=== PATIENT | female | born 1950 | race African-American/Black ===

== ENCOUNTER 2021-06-11 23:24 | Inpatient (IN) | payer MEDICARE ==
[2021-06-12] MEDS ORDERED: Dexamethasone 10 MG/ML VIAL ONE ×2 (02:42→11:50)
[2021-06-12] MEDS ORDERED: Dextrose 5% in Water 1,000 ML IV PRN (08:50)
[2021-06-12] MEDS ORDERED: hydrALAZINE 20 MG/ML VIAL SLOW IVP PRN (08:50)
[2021-06-12] MEDS ORDERED: Temazepam 15 MG CAP PO PRN (08:50)
[2021-06-12] MEDS ORDERED: Ondansetron ODT 4 MG TAB PO PRN (08:50)
[2021-06-12] MEDS ORDERED: Enoxaparin Sodium 30 MG/0.3 ML SYRINGE ONE (11:50)
[2021-06-12] MEDS: Dexamethasone 4 mg/ml Vial SLOW IVP SCH (11:55)
[2021-06-12] MEDS: Enoxaparin Sodium 30 MG/0.3 ML SYRINGE SC SCH (12:00)
[2021-06-12] MEDS ORDERED: HumaLOG 300 UNITS/3 ML VIAL ONE (12:02)
[2021-06-12] MEDS: Ascorbic Acid 500 mg Chewable Tablet PO SCH (13:50)
[2021-06-12] MEDS: Zinc Sulfate 220 MG CAP PO SCH (13:50)
[2021-06-12] MEDS: HumaLOG 300 UNITS/3 ML VIAL SC PRN ×2 (17:59→20:37)
[2021-06-13] MEDS: HumaLOG 300 UNITS/3 ML VIAL SC PRN ×3 (05:19→17:08)
[2021-06-13 06:22] LABS: Hemoglobin 11.1 g/dL (12.0-16.0); Mean Corpuscular HGB CONC 32.3 g/dL (32.0-36.0); Mean Corpuscular Hemoglobin 23.6 pg (27.0-31.0); Mean Corpuscular Volume 73.1 fL (78.0-98.0); Mean Platelet Volume 10.7 fL (7.4-10.4); Platelet Count 201 thou/uL (130-400); RBC Distribution Width 13.8 % (11.5-14.5); Red Blood Cell (RBC) Count 4.68 mill/uL (4.20-5.40); White Blood Cell (WBC) Count 16.9 thou/uL (4.8-10.8)
[2021-06-13 06:23] LABS: #Basophils 0.1 thou/uL (0.0-0.2); #Lymphocytes 1.3 thou/uL (1.20-3.40); #Monocytes 1.1 thou/uL (0.11-0.59); #Neutrophils 14.5 thou/uL (1.40-6.50); %Basophils 0.8 % (0.0-1.0); %Eosinophils 0.1 % (0.0-10.0); %Lymphocytes 7.5 % (21.0-51.0); %Monocytes 6.3 % (0.0-10.0); %Neutrophils 85.3 % (42.0-75.0)
[2021-06-13 06:34] LABS: Anion Gap 15 mmol/L (10-20); BUN (Urea Nitrogen) 49 mg/dL (9.8-20.1); Calc. Creatinine Clearance 31 mL/min (70-130); Carbon Dioxide 18 mmol/L (23-31); Chloride 109 mmol/L (98-107); Glucose 378 mg/dL (83-110); Potassium 4.8 mmol/L (3.5-5.1); Sodium 137 mmol/L (136-145)
[2021-06-13 07:25] LABS: MDiff Complete? YES; Platelet Morphology Comment Appears Adequate; Polychromasia SLIGHT = 2-3 cells (100X) (0-2/hpf)
[2021-06-13] MEDS: Ascorbic Acid 500 mg Chewable Tablet PO SCH (08:47)
[2021-06-13] MEDS: Zinc Sulfate 220 MG CAP PO SCH (08:47)
[2021-06-13] MEDS: Enoxaparin Sodium 30 MG/0.3 ML SYRINGE SC SCH (08:48)
[2021-06-13] MEDS: Dexamethasone 4 mg/ml Vial SLOW IVP SCH (08:48)
[2021-06-13] MEDS: Acetaminophen 325 MG TAB PO PRN (09:38)
[2021-06-13] MEDS ORDERED: Aspirin 81 mg Enteric Coated Tablet PO SCH (10:00)
[2021-06-13] MEDS ORDERED: Lantus 1000 UNITS/10 ML VIAL SC SCH ×3 (10:00→21:00)
[2021-06-13] MEDS ORDERED: NIFEdipine XL 30 MG TAB PO SCH (10:00)
[2021-06-13] MEDS ORDERED: Albuterol 200 PUFF (6.7GM INHALER) INH PRN (10:14)
[2021-06-13 10:17] LABS: Magnesium 2.3 mg/dL (1.6-2.6); Phosphorus 4.2 mg/dL (2.3-4.7)
[2021-06-13] MEDS: Albuterol 200 PUFF (6.7GM INHALER) INH SCH ×4 (11:52→22:10)
[2021-06-13] MEDS: Sodium Chloride 0.65% Nasal 44 ML BOT EA NARE SCH ×2 (15:18→20:11)
[2021-06-13] MEDS: NIFEdipine XL 30 MG TAB PO SCH (20:12)
[2021-06-14] MEDS ORDERED: Lorazepam 2 MG/ML VIAL SLOW IVP PRN (00:59)
[2021-06-14] MEDS: Albuterol 200 PUFF (6.7GM INHALER) INH SCH ×6 (02:03→22:34)
[2021-06-14] MEDS: HumaLOG 300 UNITS/3 ML VIAL SC PRN ×4 (06:36→21:50)
[2021-06-14 06:38] LABS: ALT (SGPT) 37 U/L (8-55); AST (SGOT) 43 U/L (5-34); Albumin 3.1 g/dL (3.4-4.8); Alkaline Phosphatase 215 U/L (40-110); Anion Gap 16 mmol/L (10-20); BUN (Urea Nitrogen) 44 mg/dL (9.8-20.1); Bilirubin, Total 0.5 mg/dL (0.2-1.2); CRP (Inflammatory) 6.83 mg/dL (= or < 0.5); Calc. Creatinine Clearance 35 mL/min (70-130); Calcium 8.6 mg/dL (7.8-10.44); Carbon Dioxide 18 mmol/L (23-31); Chloride 107 mmol/L (98-107); Globulin 3.6 g/dL (2.4-3.5); Glucose 326 mg/dL (83-110); Potassium 4.4 mmol/L (3.5-5.1); Protein, Total 6.7 g/dL (5.8-8.1); Sodium 137 mmol/L (136-145)
[2021-06-14 06:46] LABS: Band 6 % (5-11); Hemoglobin 11.8 g/dL (12.0-16.0); Lymphocytes 2 % (21-51); MDiff Complete? YES; Mean Corpuscular HGB CONC 33.4 g/dL (32.0-36.0); Mean Corpuscular Hemoglobin 24.1 pg (27.0-31.0); Mean Corpuscular Volume 72.1 fL (78.0-98.0); Mean Platelet Volume 11.4 fL (7.4-10.4); Monocytes 6 % (0-10); Myelocyte 1 % (0-0); Neutrophil 83 % (42-75); Nucleated RBC 1 % (0); Platelet Count 163 thou/uL (130-400); Platelet Morphology Comment Appears Adequate; RBC Distribution Width 13.7 % (11.5-14.5); RBC Morphology Normal; Reactive Lymphocytes 2 % (0-10); Red Blood Cell (RBC) Count 4.88 mill/uL (4.20-5.40); White Blood Cell (WBC) Count 20.4 thou/uL (4.8-10.8)
[2021-06-14] MEDS: Aspirin 81 mg Enteric Coated Tablet PO SCH (08:16)
[2021-06-14] MEDS: Zinc Sulfate 220 MG CAP PO SCH (08:16)
[2021-06-14] MEDS: NIFEdipine XL 30 MG TAB PO SCH (08:17)
[2021-06-14] MEDS: Ascorbic Acid 500 mg Chewable Tablet PO SCH (08:17)
[2021-06-14] MEDS: Enoxaparin Sodium 30 MG/0.3 ML SYRINGE SC SCH (08:18)
[2021-06-14] MEDS: Sodium Chloride 0.65% Nasal 44 ML BOT EA NARE SCH ×3 (08:19→20:04)
[2021-06-14] MEDS ORDERED: Dexamethasone 10 MG/ML VIAL SLOW IVP SCH (09:00)
[2021-06-14] MEDS ORDERED: Lantus 1000 UNITS/10 ML VIAL SC SCH (09:00)
[2021-06-14] MEDS ORDERED: Rocuronium Bromide 10 MG/ML (10ML VIAL) ONE (09:03)
[2021-06-14] MEDS ORDERED: Succinylcholine 200 MG/10 ml SYRINGE FS ONE (09:03)
[2021-06-14] MEDS ORDERED: Furosemide 20 MG/2 ML VIAL SLOW IVP SCH (09:15)
[2021-06-14] MEDS ORDERED: cloNIDine 0.1 MG TAB PO PRN (09:26)
[2021-06-14] MEDS ORDERED: Losartan 25 MG TAB PO SCH (09:30)
[2021-06-14] MEDS ORDERED: Lorazepam 0.5 MG TAB PO SCH (11:00)
[2021-06-14] MEDS ORDERED: Vecuronium 10 MG VIAL ONE (14:00)
[2021-06-14] MEDS ORDERED: Succinylcholine 200 MG/10 ml SYRINGE FS SCH (14:00)
[2021-06-14] MEDS ORDERED: PROPOFOL 200 MG/20 ML VIAL IVP SCH (14:00)
[2021-06-14] MEDS ORDERED: Sterile Water 10 ML ONE (14:01)
[2021-06-14] MEDS ORDERED: Propofol 1,000 MG/100 ML VIAL IV ONE (14:01)
[2021-06-14] MEDS ORDERED: Fentanyl CADD 100 ML ONE (14:14)
[2021-06-14] MEDS: Rocuronium Bromide 50 MG/5 ML VIAL IVP SCH ×2 (14:15→16:02)
[2021-06-14] MEDS: Propofol 1,000 MG/100 ML VIAL IV PRN ×2 (14:20→20:03)
[2021-06-14 15:11] LABS: Actual Bicarbonate (HCO3a) 21.4 mEq/L (22-28); Base Excess (BEa) -4.1 mEq/L (-2.0 to +3.0); CO2 Tension 40.8 mmHg (35.0-45.0); Calcium, Ionized (arterial) 1.11 mmol/L (1.12-1.30); Carboxyhemoglobin (COHb) 0.8 gm% (0.0-3.0); Hemoglobin (Hb) 12.2 g/dL (12.0-16.0); O2 Tension (PaO2), arterial 164.1 mmHg (> 70.0); Potassium - ABG Lab 4.31 mmol/L (3.70-5.30); pH, Arterial 7.34 (7.35-7.45)
[2021-06-14 15:13] LABS: Puncture Site RRA
[2021-06-14] MEDS ORDERED: Electrolyte Replacement Protocol 1 EACH IVPB ONE (15:44)
[2021-06-14] MEDS ORDERED: DISCONTINUE PREVIOUS NARCOTIC PAIN MEDICATIONS AND BENZODIAZEPINES FS SCH (15:45)
[2021-06-14] MEDS ORDERED: Propofol BOLUS 1,000 MG/100 ML VIAL IV PRN (15:45)
[2021-06-14] MEDS ORDERED: Fentanyl BOLUS 250 ML IVPB PRN (15:45)
[2021-06-14] MEDS ORDERED: Morphine 2 MG/ML VIAL SLOW IVP PRN (15:45)
[2021-06-14] MEDS ORDERED: Electrolyte Replacement Protocol FS PRN (19:00)
[2021-06-14] MEDS: Mometasone 200 MCG/Formoterol 5 MCG 120 PUFF INHALER INH SCH (19:28)
[2021-06-14] MEDS: Lantus 1000 UNITS/10 ML VIAL SC SCH (20:02)
[2021-06-14] MEDS: Lorazepam 2 MG/ML VIAL SLOW IVP PRN (20:03)
[2021-06-14 20:41] LABS: Anion Gap 19 mmol/L (10-20); BUN (Urea Nitrogen) 46 mg/dL (9.8-20.1); CRP (Inflammatory) 10.61 mg/dL (= or < 0.5); Calc. Creatinine Clearance 28 mL/min (70-130); Calcium 7.8 mg/dL (7.8-10.44); Carbon Dioxide 17 mmol/L (23-31); Chloride 105 mmol/L (98-107); Glucose 472 mg/dL (83-110); Potassium 5.5 mmol/L (3.5-5.1); Sodium 135 mmol/L (136-145)
[2021-06-14] MEDS ORDERED: Vecuronium Bromide 20 MG VIAL IV PRN (20:46)
[2021-06-14] MEDS ORDERED: Famotidine 40 MG/5 ML Oral Suspension PER TUBE SCH (21:00)
[2021-06-14] MEDS ORDERED: Famotidine/PF 20 mg/2ml Vial SLOW IVP SCH (21:00)
[2021-06-14] MEDS ORDERED: Amlodipine 5 MG TAB PO SCH (21:00)
[2021-06-14] MEDS: Pantoprazole 40 MG VIAL IVP SCH (21:14)
[2021-06-14] MEDS: Enoxaparin Sodium 40 MG/0.4 ML SYRINGE SC SCH (21:14)
[2021-06-14] MEDS ORDERED: BARICITINIB 1 MG TAB PO SCH (21:15)
[2021-06-14] MEDS: Colchicine 0.6 MG TAB PO SCH (21:27)
[2021-06-14] MEDS: Sodium Bicarbonate 100 MEQ in Sodium Chloride 0.45% 1,000 ML IV SCH (22:45)
[2021-06-14] MEDS: METHYLPREDNISOLONE SODIUM SUCC IVPB SCH (22:46)
[2021-06-14] MEDS: SODIUM CHLORIDE 0.9% IVPB SCH (22:46)
[2021-06-15] MEDS: Propofol 1,000 MG/100 ML VIAL IV PRN ×2 (01:09→10:53)
[2021-06-15] MEDS: HumaLOG 300 UNITS/3 ML VIAL SC PRN ×5 (02:06→22:09)
[2021-06-15] MEDS: Albuterol 200 PUFF (6.7GM INHALER) INH SCH ×6 (03:04→22:12)
[2021-06-15 04:49] LABS: Band 1 % (5-11); Hemoglobin 10.1 g/dL (12.0-16.0); Lymphocytes 8 % (21-51); MDiff Complete? YES; Mean Corpuscular HGB CONC 32.5 g/dL (32.0-36.0); Mean Corpuscular Hemoglobin 23.6 pg (27.0-31.0); Mean Corpuscular Volume 72.5 fL (78.0-98.0); Mean Platelet Volume 6.8 fL (7.4-10.4); Metamyelocyte 1 % (0-0); Monocytes 6 % (0-10); Myelocyte 1 % (0-0); Neutrophil 83 % (42-75); Nucleated RBC 1 % (0); Platelet Count 77 thou/uL (130-400); Platelet Morphology Comment Appears Decreased; White Blood Cell (WBC) Count 20.9 thou/uL (4.8-10.8)
[2021-06-15 04:52] LABS: ALT (SGPT) 27 U/L (8-55); AST (SGOT) 28 U/L (5-34); Albumin 2.6 g/dL (3.4-4.8); Alkaline Phosphatase 226 U/L (40-110); Anion Gap 15 mmol/L (10-20); BUN (Urea Nitrogen) 54 mg/dL (9.8-20.1); Bilirubin, Total 0.4 mg/dL (0.2-1.2); Calc. Creatinine Clearance 22 mL/min (70-130); Calcium 7.9 mg/dL (7.8-10.44); Carbon Dioxide 21 mmol/L (23-31); Chloride 106 mmol/L (98-107); Globulin 3.1 g/dL (2.4-3.5); Glucose 294 mg/dL (83-110); Potassium 4.6 mmol/L (3.5-5.1); Protein, Total 5.7 g/dL (5.8-8.1); Sodium 137 mmol/L (136-145)
[2021-06-15 04:52] LABS: CRP (Inflammatory) 12.14 mg/dL (= or < 0.5); Magnesium 2.4 mg/dL (1.6-2.6)
[2021-06-15 04:54] LABS: CK (CPK) 498 U/L (29-168); Phosphorus 5.5 mg/dL (2.3-4.7)
[2021-06-15] MEDS: Mometasone 200 MCG/Formoterol 5 MCG 120 PUFF INHALER INH SCH ×2 (07:18→18:50)
[2021-06-15 07:40] LABS: Actual Bicarbonate (HCO3a) 20.1 mEq/L (22-28); Base Excess (BEa) -4.6 mEq/L (-2.0 to +3.0); CO2 Tension 35.8 mmHg (35.0-45.0); Carboxyhemoglobin (COHb) 1.3 gm% (0.0-3.0); Hemoglobin (Hb) 13.2 g/dL (12.0-16.0); O2 Tension (PaO2), arterial 60.7 mmHg (> 70.0); Potassium - ABG Lab 4.43 mmol/L (3.70-5.30); Puncture Site RRA; pH, Arterial 7.37 (7.35-7.45)
[2021-06-15] MEDS ORDERED: Enoxaparin Sodium 40 MG/0.4 ML SYRINGE SC SCH (09:00)
[2021-06-15] MEDS ORDERED: NIFEdipine XL 60 MG TAB PO SCH (09:00)
[2021-06-15] MEDS ORDERED: Losartan 25 MG TAB PO SCH ×2 (09:00)
[2021-06-15] MEDS: Ascorbic Acid 500 mg Chewable Tablet PO SCH (09:26)
[2021-06-15] MEDS: Colchicine 0.6 MG TAB PO SCH ×2 (09:26→22:07)
[2021-06-15] MEDS: Aspirin 81 mg Enteric Coated Tablet PO SCH (09:26)
[2021-06-15] MEDS: Zinc Sulfate 220 MG CAP PO SCH (09:26)
[2021-06-15] MEDS: Lantus 1000 UNITS/10 ML VIAL SC SCH ×2 (09:28→22:08)
[2021-06-15] MEDS: Enoxaparin Sodium 40 MG/0.4 ML SYRINGE SC SCH ×2 (09:29→22:05)
[2021-06-15] MEDS: Pantoprazole 40 MG VIAL IVP SCH ×2 (09:30→22:04)
[2021-06-15] MEDS: Sodium Chloride 0.65% Nasal 44 ML BOT EA NARE SCH ×3 (10:09→21:00)
[2021-06-15] MEDS: BARICITINIB 1 MG TAB PO SCH (10:26)
[2021-06-15] MEDS: Sodium Bicarbonate 100 MEQ in Sodium Chloride 0.45% 1,000 ML IV SCH (14:20)
[2021-06-15] MEDS ORDERED: Dextrose 50% Abboject 50 ML SYRINGE ONE (22:17)
[2021-06-15] MEDS: METHYLPREDNISOLONE SODIUM SUCC IVPB SCH (22:41)
[2021-06-15] MEDS: SODIUM CHLORIDE 0.9% IVPB SCH (22:41)
[2021-06-16] MEDS: HumaLOG 300 UNITS/3 ML VIAL SC PRN ×6 (01:41→20:35)
[2021-06-16] MEDS: Albuterol 200 PUFF (6.7GM INHALER) INH SCH ×6 (01:47→22:20)
[2021-06-16] MEDS: Propofol 1,000 MG/100 ML VIAL IV PRN ×5 (03:47→22:58)
[2021-06-16] MEDS ORDERED: Fentanyl CADD 100 ML ONE (04:44)
[2021-06-16] MEDS: Sodium Bicarbonate 100 MEQ in Sodium Chloride 0.45% 1,000 ML IV SCH (04:51)
[2021-06-16] MEDS: Mometasone 200 MCG/Formoterol 5 MCG 120 PUFF INHALER INH SCH ×2 (07:14→19:03)
[2021-06-16 07:37] LABS: Actual Bicarbonate (HCO3a) 21.2 mEq/L (22-28); Base Excess (BEa) -1.7 mEq/L (-2.0 to +3.0); CO2 Tension 29.2 mmHg (35.0-45.0); Calcium, Ionized (arterial) 0.99 mmol/L (1.12-1.30); Carboxyhemoglobin (COHb) 0.2 gm% (0.0-3.0); Hemoglobin (Hb) 9.7 g/dL (12.0-16.0); O2 Tension (PaO2), arterial 79.4 mmHg (> 70.0); Potassium - ABG Lab 3.84 mmol/L (3.70-5.30); pH, Arterial 7.48 (7.35-7.45)
[2021-06-16 07:38] LABS: Puncture Site LRA
[2021-06-16] MEDS: Lantus 1000 UNITS/10 ML VIAL SC SCH ×2 (10:07→20:33)
[2021-06-16] MEDS: BARICITINIB 1 MG TAB PO SCH (10:10)
[2021-06-16] MEDS: Aspirin 81 mg Enteric Coated Tablet PO SCH (10:10)
[2021-06-16] MEDS: Ascorbic Acid 500 mg Chewable Tablet PO SCH (10:10)
[2021-06-16] MEDS: Colchicine 0.6 MG TAB PO SCH (10:11)
[2021-06-16] MEDS: Enoxaparin Sodium 40 MG/0.4 ML SYRINGE SC SCH ×2 (10:11→20:32)
[2021-06-16] MEDS: Zinc Sulfate 220 MG CAP PO SCH (10:11)
[2021-06-16] MEDS: Pantoprazole 40 MG VIAL IVP SCH ×2 (10:11→20:34)
[2021-06-16 10:18] LABS: Anion Gap 20 mmol/L (10-20); BUN (Urea Nitrogen) 78 mg/dL (9.8-20.1); Band 26 % (5-11); Calc. Creatinine Clearance 13 mL/min (70-130); Calcium 7.2 mg/dL (7.8-10.44); Carbon Dioxide 20 mmol/L (23-31); Chloride 101 mmol/L (98-107); Glucose 219 mg/dL (83-110); Lymphocytes 7 % (21-51); MDiff Complete? YES; Magnesium 2.3 mg/dL (1.6-2.6); Mean Corpuscular HGB CONC 32.4 g/dL (32.0-36.0); Mean Corpuscular Hemoglobin 23.1 pg (27.0-31.0); Mean Corpuscular Volume 71.2 fL (78.0-98.0); Mean Platelet Volume 7.9 fL (7.4-10.4); Monocytes 1 % (0-10); Myelocyte 6 % (0-0); Neutrophil 60 % (42-75); Platelet Count 83 thou/uL (130-400); Potassium 3.9 mmol/L (3.5-5.1); RBC Distribution Width 13.5 % (11.5-14.5); Red Blood Cell (RBC) Count 3.89 mill/uL (4.20-5.40); Sodium 137 mmol/L (136-145); White Blood Cell (WBC) Count 23.3 thou/uL (4.8-10.8)
[2021-06-16] MEDS: Sodium Chloride 0.65% Nasal 44 ML BOT EA NARE SCH ×2 (11:08→14:21)
[2021-06-16 16:39] LABS: HBSAg Index 0.17 S/CO (0-0.99); Hep B Core Total Ab Non-Reactive (NonReactive); Hep B Core Total Index 0.06 S/CO (0-0.79); Hep B Surf Ag Non-Reactive S/CO (NonReactive); Hep C IgG Ab Non-Reactive (NonReactive); Hep C Index 0.05 S/CO (0-0.79)
[2021-06-16 18:00] LABS: HBSAB Concentration 11.33 mIU/mL
[2021-06-16 18:01] LABS: Hep B Surf AB EQUIVOCAL (NonReactive)
[2021-06-16] MEDS: METHYLPREDNISOLONE SODIUM SUCC IVPB SCH (23:58)
[2021-06-16] MEDS: SODIUM CHLORIDE 0.9% IVPB SCH (23:58)
[2021-06-17] MEDS: HumaLOG 300 UNITS/3 ML VIAL SC PRN ×6 (00:09→23:50)
[2021-06-17] MEDS: Albuterol 200 PUFF (6.7GM INHALER) INH SCH ×6 (02:15→22:20)
[2021-06-17 04:45] LABS: Band 8 % (5-11); Eosinophils 2 % (0-10); Hemoglobin 9.1 g/dL (12.0-16.0); Hypochromia SLIGHT = 6-15 cells (100X) (0-5/hpf); Lymphocytes 6 % (21-51); MDiff Complete? YES; Mean Corpuscular HGB CONC 32.9 g/dL (32.0-36.0); Mean Corpuscular Hemoglobin 23.3 pg (27.0-31.0); Mean Corpuscular Volume 70.8 fL (78.0-98.0); Mean Platelet Volume 8.1 fL (7.4-10.4); Microcytosis SLIGHT = 6-15 cells (100X) (0-5/hpf); Monocytes 18 % (0-10); Neutrophil 66 % (42-75); Platelet Count 91 thou/uL (130-400); Platelet Morphology Comment Appears Decreased; RBC Distribution Width 13.4 % (11.5-14.5); Red Blood Cell (RBC) Count 3.91 mill/uL (4.20-5.40); White Blood Cell (WBC) Count 25.7 thou/uL (4.8-10.8)
[2021-06-17] MEDS: Mometasone 200 MCG/Formoterol 5 MCG 120 PUFF INHALER INH SCH ×2 (07:00→18:53)
[2021-06-17 07:29] LABS: Base Excess (BEa) -4.1 mEq/L (-2.0 to +3.0); Calcium, Ionized (arterial) 0.94 mmol/L (1.12-1.30); Carboxyhemoglobin (COHb) 0.6 gm% (0.0-3.0); Hemoglobin (Hb) 9.4 g/dL (12.0-16.0); O2 Tension (PaO2), arterial 105.3 mmHg (> 70.0); Potassium - ABG Lab 4.07 mmol/L (3.70-5.30)
[2021-06-17 07:31] LABS: CO2 Tension 23.8 mmHg (35.0-45.0); Puncture Site LRA
[2021-06-17 09:52] LABS: Anion Gap 21 mmol/L (10-20); BUN (Urea Nitrogen) 93 mg/dL (9.8-20.1); Calc. Creatinine Clearance 4 mL/min (70-130); Calcium 7.1 mg/dL (7.8-10.44); Carbon Dioxide 18 mmol/L (23-31); Chloride 101 mmol/L (98-107); Glucose 238 mg/dL (83-110); Potassium 4.4 mmol/L (3.5-5.1); Sodium 136 mmol/L (136-145)
[2021-06-17] MEDS: Propofol 1,000 MG/100 ML VIAL IV PRN ×3 (10:09→22:32)
[2021-06-17] MEDS: Pantoprazole 40 MG VIAL IVP SCH ×2 (10:35→21:00)
[2021-06-17] MEDS: Zinc Sulfate 220 MG CAP PO SCH (10:35)
[2021-06-17] MEDS: Enoxaparin Sodium 40 MG/0.4 ML SYRINGE SC SCH ×2 (10:35→20:59)
[2021-06-17] MEDS: Ascorbic Acid 500 mg Chewable Tablet PO SCH (10:35)
[2021-06-17] MEDS: Aspirin 81 mg Enteric Coated Tablet PO SCH (10:35)
[2021-06-17] MEDS: Lantus 1000 UNITS/10 ML VIAL SC SCH ×2 (10:36→20:58)
[2021-06-17] MEDS ORDERED: Vecuronium 10 MG VIAL ONE (10:47)
[2021-06-17] MEDS: Sodium Chloride 0.65% Nasal 44 ML BOT EA NARE SCH ×4 (12:21→23:26)
[2021-06-18] MEDS: SODIUM CHLORIDE 0.9% IVPB SCH (01:34)
[2021-06-18] MEDS: METHYLPREDNISOLONE SODIUM SUCC IVPB SCH (01:34)
[2021-06-18] MEDS: Albuterol 200 PUFF (6.7GM INHALER) INH SCH ×6 (01:49→22:55)
[2021-06-18] MEDS: Propofol 1,000 MG/100 ML VIAL IV PRN ×2 (04:31→08:08)
[2021-06-18 05:33] LABS: Band 11 % (5-11); Hemoglobin 9.3 g/dL (12.0-16.0); Lymphocytes 7 % (21-51); MDiff Complete? YES; Mean Corpuscular Hemoglobin 23.5 pg (27.0-31.0); Mean Platelet Volume 7.6 fL (7.4-10.4); Metamyelocyte 3 % (0-0); Microcytosis SLIGHT = 6-15 cells (100X) (0-5/hpf); Monocytes 3 % (0-10); Myelocyte 1 % (0-0); Neutrophil 75 % (42-75); Nucleated RBC 1 % (0); Platelet Count 92 thou/uL (130-400); Platelet Morphology Comment Appears Decreased; RBC Distribution Width 13.5 % (11.5-14.5); Red Blood Cell (RBC) Count 3.97 mill/uL (4.20-5.40); Schistocytes SLIGHT = 2-5 cells (100X) (0-1/hpf); White Blood Cell (WBC) Count 27.3 thou/uL (4.8-10.8)
[2021-06-18 05:59] LABS: Anion Gap 21 mmol/L (10-20); BUN (Urea Nitrogen) 114 mg/dL (9.8-20.1); CRP (Inflammatory) 3.14 mg/dL (= or < 0.5); Calc. Creatinine Clearance 8 mL/min (70-130); Calcium 7.1 mg/dL (7.8-10.44); Carbon Dioxide 20 mmol/L (23-31); Chloride 101 mmol/L (98-107); Glucose 70 mg/dL (83-110); Potassium 4.8 mmol/L (3.5-5.1); Sodium 137 mmol/L (136-145)
[2021-06-18] MEDS ORDERED: Fentanyl CADD 100 ML ONE (06:06)
[2021-06-18] MEDS: Fentanyl CADD 100 ML IV SCH (06:13)
[2021-06-18] MEDS: Mometasone 200 MCG/Formoterol 5 MCG 120 PUFF INHALER INH SCH ×2 (07:20→19:11)
[2021-06-18 07:46] LABS: Actual Bicarbonate (HCO3a) 18.3 mEq/L (22-28); Base Excess (BEa) -4.7 mEq/L (-2.0 to +3.0); Calcium, Ionized (arterial) 0.92 mmol/L (1.12-1.30); Carboxyhemoglobin (COHb) 0.5 gm% (0.0-3.0); Hemoglobin (Hb) 9.6 g/dL (12.0-16.0); O2 Tension (PaO2), arterial 147.6 mmHg (> 70.0); pH, Arterial 7.45 (7.35-7.45)
[2021-06-18 07:49] LABS: Puncture Site LRA
[2021-06-18] MEDS: Enoxaparin Sodium 40 MG/0.4 ML SYRINGE SC SCH (09:19)
[2021-06-18] MEDS: Aspirin Chewable 81 MG TAB PO SCH (09:20)
[2021-06-18] MEDS: Ascorbic Acid 500 mg Chewable Tablet PO SCH (09:20)
[2021-06-18] MEDS: Zinc Sulfate 220 MG CAP PO SCH (09:20)
[2021-06-18] MEDS: Pantoprazole 40 MG VIAL IVP SCH ×2 (09:21→21:00)
[2021-06-18] MEDS: Lantus 1000 UNITS/10 ML VIAL SC SCH ×2 (09:21→21:00)
[2021-06-18] MEDS: Sodium Chloride 0.65% Nasal 44 ML BOT EA NARE SCH ×3 (09:22→21:00)
[2021-06-18] MEDS ORDERED: Vecuronium 10 MG VIAL ONE (11:36)
[2021-06-18] MEDS ORDERED: Heparin 10,000 UNITS/ 10 ML VIAL ONE (14:20)
[2021-06-19] MEDS: METHYLPREDNISOLONE SODIUM SUCC IVPB SCH (02:12)
[2021-06-19] MEDS: SODIUM CHLORIDE 0.9% IVPB SCH (02:12)
[2021-06-19] MEDS: Albuterol 200 PUFF (6.7GM INHALER) INH SCH ×6 (02:28→22:30)
[2021-06-19 04:39] LABS: Anion Gap 18 mmol/L (10-20); BUN (Urea Nitrogen) 87 mg/dL (9.8-20.1); Calc. Creatinine Clearance 10 mL/min (70-130); Calcium 7.2 mg/dL (7.8-10.44); Carbon Dioxide 24 mmol/L (23-31); Chloride 100 mmol/L (98-107); Glucose 81 mg/dL (83-110); Sodium 137 mmol/L (136-145)
[2021-06-19] MEDS: Enoxaparin Sodium 40 MG/0.4 ML SYRINGE SC SCH (07:04)
[2021-06-19] MEDS: Zinc Sulfate 220 MG CAP PO SCH (07:05)
[2021-06-19] MEDS: Ascorbic Acid 500 mg Chewable Tablet PO SCH (07:05)
[2021-06-19] MEDS: Aspirin Chewable 81 MG TAB PO SCH (07:05)
[2021-06-19] MEDS: Pantoprazole 40 MG GRANULES PACKET PER TUBE SCH ×2 (07:05→20:56)
[2021-06-19] MEDS: Lantus 1000 UNITS/10 ML VIAL SC SCH ×2 (07:22→20:56)
[2021-06-19] MEDS: Sodium Chloride 0.65% Nasal 44 ML BOT EA NARE SCH ×3 (07:22→21:42)
[2021-06-19] MEDS: Mometasone 200 MCG/Formoterol 5 MCG 120 PUFF INHALER INH SCH ×2 (08:34→18:17)
[2021-06-19 08:38] LABS: Actual Bicarbonate (HCO3a) 22.2 mEq/L (22-28); Base Excess (BEa) -1.9 mEq/L (-2.0 to +3.0); CO2 Tension 35.2 mmHg (35.0-45.0); Calcium, Ionized (arterial) 0.94 mmol/L (1.12-1.30); Carboxyhemoglobin (COHb) 0.9 gm% (0.0-3.0); Hemoglobin (Hb) 9.2 g/dL (12.0-16.0); O2 Tension (PaO2), arterial 138.9 mmHg (> 70.0); Potassium - ABG Lab 4.84 mmol/L (3.70-5.30); pH, Arterial 7.42 (7.35-7.45)
[2021-06-19 08:40] LABS: Puncture Site RRA
[2021-06-19 10:12] LABS: Hemoglobin 9.3 g/dL (12.0-16.0); Mean Corpuscular HGB CONC 32.8 g/dL (32.0-36.0); Mean Corpuscular Hemoglobin 23.5 pg (27.0-31.0); Mean Corpuscular Volume 71.7 fL (78.0-98.0); Mean Platelet Volume 7.9 fL (7.4-10.4); Platelet Count 82 thou/uL (130-400); Red Blood Cell (RBC) Count 3.93 mill/uL (4.20-5.40); White Blood Cell (WBC) Count 24.1 thou/uL (4.8-10.8)
[2021-06-19 11:13] LABS: Band 7 % (5-11); Lymphocytes 7 % (21-51); MDiff Complete? YES; Metamyelocyte 2 % (0-0); Monocytes 1 % (0-10); Myelocyte 1 % (0-0); Neutrophil 81 % (42-75); Platelet Morphology Comment Appears Decreased; Polychromasia SLIGHT = 2-3 cells (100X) (0-2/hpf); Reactive Lymphocytes 1 % (0-10); Reflex for Review?? NO; Schistocytes SLIGHT = 2-5 cells (100X) (0-1/hpf); Vacuoles MODERATE
[2021-06-19] MEDS ORDERED: Fentanyl CADD 100 ML ONE (12:57)
[2021-06-19] MEDS: Propofol 1,000 MG/100 ML VIAL IV PRN (13:11)
[2021-06-19] MEDS ORDERED: Heparin 10,000 UNITS/ 10 ML VIAL ONE (13:52)
[2021-06-20] MEDS: Albuterol 200 PUFF (6.7GM INHALER) INH SCH ×6 (02:27→22:21)
[2021-06-20] MEDS: METHYLPREDNISOLONE SODIUM SUCC IVPB SCH (02:46)
[2021-06-20] MEDS: SODIUM CHLORIDE 0.9% IVPB SCH (02:46)
[2021-06-20 05:08] LABS: Anisocytosis SLIGHT = 6-15 cells (100X) (0-5/hpf); Band 3 % (5-11); Eosinophils 1 % (0-10); Lymphocytes 8 % (21-51); MDiff Complete? YES; Mean Corpuscular HGB CONC 32.7 g/dL (32.0-36.0); Mean Corpuscular Hemoglobin 23.8 pg (27.0-31.0); Mean Corpuscular Volume 72.9 fL (78.0-98.0); Mean Platelet Volume 8.5 fL (7.4-10.4); Metamyelocyte 3 % (0-0); Microcytosis SLIGHT = 6-15 cells (100X) (0-5/hpf); Monocytes 2 % (0-10); Myelocyte 3 % (0-0); Neutrophil 80 % (42-75); Nucleated RBC 1 % (0); Platelet Count 82 thou/uL (130-400); Platelet Morphology Comment Appears Decreased; Polychromasia SLIGHT = 2-3 cells (100X) (0-2/hpf); RBC Distribution Width 14.8 % (11.5-14.5); Red Blood Cell (RBC) Count 3.79 mill/uL (4.20-5.40); White Blood Cell (WBC) Count 23.1 thou/uL (4.8-10.8)
[2021-06-20] MEDS: Zinc Sulfate 220 MG CAP PO SCH (07:12)
[2021-06-20] MEDS: Enoxaparin Sodium 40 MG/0.4 ML SYRINGE SC SCH (07:12)
[2021-06-20] MEDS: Pantoprazole 40 MG GRANULES PACKET PER TUBE SCH ×2 (07:12→19:34)
[2021-06-20] MEDS: Aspirin Chewable 81 MG TAB PO SCH (07:13)
[2021-06-20] MEDS: Ascorbic Acid 500 mg Chewable Tablet PO SCH (07:13)
[2021-06-20] MEDS: Mometasone 200 MCG/Formoterol 5 MCG 120 PUFF INHALER INH SCH ×2 (07:39→18:45)
[2021-06-20 07:42] LABS: Actual Bicarbonate (HCO3a) 24.6 mEq/L (22-28); Base Excess (BEa) -0.5 mEq/L (-2.0 to +3.0); CO2 Tension 42.6 mmHg (35.0-45.0); Calcium, Ionized (arterial) 0.99 mmol/L (1.12-1.30); Carboxyhemoglobin (COHb) 0.6 gm% (0.0-3.0); O2 Tension (PaO2), arterial 105.7 mmHg (> 70.0); Potassium - ABG Lab 5.18 mmol/L (3.70-5.30); pH, Arterial 7.38 (7.35-7.45)
[2021-06-20 07:45] LABS: Puncture Site RRA
[2021-06-20] MEDS: Lantus 1000 UNITS/10 ML VIAL SC SCH ×2 (08:32→19:33)
[2021-06-20] MEDS: Sodium Chloride 0.65% Nasal 44 ML BOT EA NARE SCH ×3 (08:33→19:34)
[2021-06-20 10:13] LABS: Anion Gap 17 mmol/L (10-20); BUN (Urea Nitrogen) 74 mg/dL (9.8-20.1); Calc. Creatinine Clearance 11 mL/min (70-130); Calcium 7.3 mg/dL (7.8-10.44); Carbon Dioxide 25 mmol/L (23-31); Chloride 99 mmol/L (98-107); Glucose 132 mg/dL (83-110); Potassium 5.4 mmol/L (3.5-5.1); Sodium 136 mmol/L (136-145)
[2021-06-20] MEDS: Propofol 1,000 MG/100 ML VIAL IV PRN (12:17)
[2021-06-20] MEDS: Lorazepam 2 MG/ML VIAL SLOW IVP PRN ×2 (12:58→17:47)
[2021-06-20] MEDS ORDERED: Fentanyl CADD 100 ML ONE (15:26)
[2021-06-21] MEDS: HumaLOG 300 UNITS/3 ML VIAL SC PRN ×2 (00:32→04:46)
[2021-06-21] MEDS: METHYLPREDNISOLONE SODIUM SUCC IVPB SCH (02:12)
[2021-06-21] MEDS: SODIUM CHLORIDE 0.9% IVPB SCH (02:12)
[2021-06-21] MEDS: Albuterol 200 PUFF (6.7GM INHALER) INH SCH ×6 (02:57→23:17)
[2021-06-21 06:46] LABS: Band 11 % (5-11); Hemoglobin 8.5 g/dL (12.0-16.0); Lymphocytes 4 % (21-51); MDiff Complete? YES; Mean Corpuscular Hemoglobin 23.4 pg (27.0-31.0); Mean Corpuscular Volume 73.2 fL (78.0-98.0); Mean Platelet Volume 9.6 fL (7.4-10.4); Monocytes 2 % (0-10); Neutrophil 83 % (42-75); Platelet Count 90 thou/uL (130-400); Platelet Morphology Comment Appears Decreased; RBC Distribution Width 14.4 % (11.5-14.5); Red Blood Cell (RBC) Count 3.63 mill/uL (4.20-5.40); White Blood Cell (WBC) Count 22.1 thou/uL (4.8-10.8)
[2021-06-21] MEDS: Lorazepam 2 MG/ML VIAL SLOW IVP PRN (07:48)
[2021-06-21 08:16] LABS: Hemoglobin 8.9 g/dL (12.0-16.0); Mean Corpuscular HGB CONC 31.6 g/dL (32.0-36.0); Mean Corpuscular Hemoglobin 23.4 pg (27.0-31.0); Mean Corpuscular Volume 73.9 fL (78.0-98.0); Mean Platelet Volume 9.2 fL (7.4-10.4); Platelet Count 86 thou/uL (130-400); RBC Distribution Width 14.8 % (11.5-14.5); Red Blood Cell (RBC) Count 3.81 mill/uL (4.20-5.40); White Blood Cell (WBC) Count 25.3 thou/uL (4.8-10.8)
[2021-06-21] MEDS: Mometasone 200 MCG/Formoterol 5 MCG 120 PUFF INHALER INH SCH ×2 (08:25→19:19)
[2021-06-21 08:27] LABS: Anion Gap 26 mmol/L (10-20); BUN (Urea Nitrogen) 92 mg/dL (9.8-20.1); Calc. Creatinine Clearance 9 mL/min (70-130); Calcium 6.4 mg/dL (7.8-10.44); Carbon Dioxide 19 mmol/L (23-31); Chloride 107 mmol/L (98-107); Glucose 93 mg/dL (83-110); Potassium 6.7 mmol/L (3.5-5.1); Sodium 145 mmol/L (136-145)
[2021-06-21 08:55] LABS: Band 7 % (5-11); Hypochromia SLIGHT = 6-15 cells (100X) (0-5/hpf); Lymphocytes 3 % (21-51); MDiff Complete? YES; Microcytosis SLIGHT = 6-15 cells (100X) (0-5/hpf); Monocytes 6 % (0-10); Neutrophil 84 % (42-75); Platelet Morphology Comment Appears Decreased; Polychromasia SLIGHT = 2-3 cells (100X) (0-2/hpf); Schistocytes SLIGHT = 2-5 cells (100X) (0-1/hpf); Target Cells SLIGHT = 2-5 cells (100X) (0-1/hpf)
[2021-06-21] MEDS: Lantus 1000 UNITS/10 ML VIAL SC SCH ×2 (09:37→20:06)
[2021-06-21] MEDS: Enoxaparin Sodium 40 MG/0.4 ML SYRINGE SC SCH (09:41)
[2021-06-21] MEDS ORDERED: Heparin 10,000 UNITS/ 10 ML VIAL ONE (09:48)
[2021-06-21] MEDS: Propofol 1,000 MG/100 ML VIAL IV PRN (09:50)
[2021-06-21] MEDS: Dextrose 50% Abboject 50 ML SYRINGE SLOW IVP PRN (10:43)
[2021-06-21] MEDS ORDERED: Insulin Regular 300 UNITS/3 ML VIAL SC SCH (11:00)
[2021-06-21] MEDS ORDERED: Dextrose 50% Abboject 50 ML SYRINGE SLOW IVP SCH (11:00)
[2021-06-21 11:39] LABS: CKMB 8.2 ng/mL (0-6.6); Critical Call CKMB 0; Troponin I 2.643 ng/mL (< 0.028)
[2021-06-21 14:00] LABS: Anion Gap 17 mmol/L (10-20); BUN (Urea Nitrogen) 41 mg/dL (9.8-20.1); Calc. Creatinine Clearance 16 mL/min (70-130); Calcium 7.9 mg/dL (7.8-10.44); Carbon Dioxide 26 mmol/L (23-31); Chloride 97 mmol/L (98-107); Potassium 4.2 mmol/L (3.5-5.1); Sodium 136 mmol/L (136-145)
[2021-06-21 14:01] LABS: ALT (SGPT) 41 U/L (8-55); AST (SGOT) 54 U/L (5-34); Albumin 2.6 g/dL (3.4-4.8); Alkaline Phosphatase 89 U/L (40-110); Bilirubin, Total 0.5 mg/dL (0.2-1.2); Globulin 2.9 g/dL (2.4-3.5); Glucose 103 mg/dL (83-110); Protein, Total 5.5 g/dL (5.8-8.1)
[2021-06-21] MEDS: Pantoprazole 40 MG GRANULES PACKET PER TUBE SCH ×2 (14:20→19:33)
[2021-06-21] MEDS: Aspirin Chewable 81 MG TAB PO SCH (14:20)
[2021-06-21] MEDS: Ascorbic Acid 500 mg Chewable Tablet PO SCH (14:20)
[2021-06-21] MEDS: Zinc Sulfate 220 MG CAP PO SCH (14:21)
[2021-06-21] MEDS: Sodium Chloride 0.65% Nasal 44 ML BOT EA NARE SCH ×3 (14:21→19:34)
[2021-06-21] MEDS: Fentanyl CADD 100 ML IV SCH (14:39)
[2021-06-21] MEDS ORDERED: Lactated Ringer's 500 ML IV SCH (15:45)
[2021-06-21 17:35] LABS: Troponin I 2.589 ng/mL (< 0.028)
[2021-06-22] MEDS: Albuterol 200 PUFF (6.7GM INHALER) INH SCH ×5 (02:01→19:08)
[2021-06-22] MEDS: METHYLPREDNISOLONE SODIUM SUCC IVPB SCH (05:35)
[2021-06-22] MEDS: SODIUM CHLORIDE 0.9% IVPB SCH (05:35)
[2021-06-22 08:03] LABS: Actual Bicarbonate (HCO3a) 25.4 mEq/L (22-28); Base Excess (BEa) 0.8 mEq/L (-2.0 to +3.0); Calcium, Ionized (arterial) 1.02 mmol/L (1.12-1.30); Carboxyhemoglobin (COHb) 1.1 gm% (0.0-3.0); Hemoglobin (Hb) 8.1 g/dL (12.0-16.0); O2 Tension (PaO2), arterial 94.7 mmHg (> 70.0); Potassium - ABG Lab 5.01 mmol/L (3.70-5.30); pH, Arterial 7.42 (7.35-7.45)
[2021-06-22 08:05] LABS: Puncture Site LRA
[2021-06-22] MEDS: Mometasone 200 MCG/Formoterol 5 MCG 120 PUFF INHALER INH SCH ×2 (08:20→19:08)
[2021-06-22] MEDS: Zinc Sulfate 220 MG CAP PO SCH (08:58)
[2021-06-22] MEDS: Lantus 1000 UNITS/10 ML VIAL SC SCH ×2 (08:59→21:40)
[2021-06-22] MEDS: Aspirin Chewable 81 MG TAB PO SCH (08:59)
[2021-06-22] MEDS: Pantoprazole 40 MG GRANULES PACKET PER TUBE SCH ×2 (08:59→21:39)
[2021-06-22] MEDS: Ascorbic Acid 500 mg Chewable Tablet PO SCH (08:59)
[2021-06-22] MEDS: Enoxaparin Sodium 40 MG/0.4 ML SYRINGE SC SCH (09:00)
[2021-06-22] MEDS: Sodium Chloride 0.65% Nasal 44 ML BOT EA NARE SCH ×3 (09:02→21:43)
[2021-06-22] MEDS: Fentanyl CADD 100 ML IV SCH (13:42)
[2021-06-22 14:37] LABS: Hemoglobin 8.3 g/dL (12.0-16.0); Mean Corpuscular HGB CONC 33.8 g/dL (32.0-36.0); Mean Corpuscular Hemoglobin 24.7 pg (27.0-31.0); Mean Corpuscular Volume 73.1 fL (78.0-98.0); Mean Platelet Volume 6.7 fL (7.4-10.4); Platelet Count 106 thou/uL (130-400); RBC Distribution Width 14.3 % (11.5-14.5); Red Blood Cell (RBC) Count 3.36 mill/uL (4.20-5.40); White Blood Cell (WBC) Count 30.8 thou/uL (4.8-10.8)
[2021-06-22 15:04] LABS: Anion Gap 22 mmol/L (10-20); BUN (Urea Nitrogen) 95 mg/dL (9.8-20.1); Calc. Creatinine Clearance 10 mL/min (70-130); Calcium 7.9 mg/dL (7.8-10.44); Carbon Dioxide 23 mmol/L (23-31); Chloride 95 mmol/L (98-107); Glucose 142 mg/dL (83-110); Potassium 5.3 mmol/L (3.5-5.1); Sodium 135 mmol/L (136-145)
[2021-06-22 15:19] LABS: Band 9 % (5-11); Lymphocytes 1 % (21-51); MDiff Complete? YES; Microcytosis SLIGHT = 6-15 cells (100X) (0-5/hpf); Monocytes 4 % (0-10); Neutrophil 86 % (42-75); Platelet Morphology Comment Appears Decreased; Polychromasia SLIGHT = 2-3 cells (100X) (0-2/hpf); Schistocytes SLIGHT = 2-5 cells (100X) (0-1/hpf); Target Cells MODERATE= 6-15 cells (100X) (0-1/hpf); Tear Drops SLIGHT = 2-5 cells (100X) (0-1/hpf)
[2021-06-22] MEDS ORDERED: Vancomycin 1 GM in Premix Bag 1 BAG IVPB SCH ×2 (17:32→18:15)
[2021-06-22] MEDS ORDERED: ANTIBIOTICS IVPB PRN (18:04)
[2021-06-22] MEDS ORDERED: Vancomycin HCl 1.25 GM in Sodium Chloride 0.9% 250 ML 250 ML IVPB SCH (18:15)
[2021-06-22] MEDS ORDERED: Cefepime 2 GM in Sodium Chloride 0.9% 100 ML IVPB SCH (18:15)
[2021-06-22] MEDS ORDERED: HOLD VANCOMYCIN FOR LEVEL >20 FS SCH (18:15)
[2021-06-22] MEDS ORDERED: Vancomycin HCl 750 MG in Sodium Chloride 0.9% 250 ML 250 ML IVPB SCH (18:15)
[2021-06-22] MEDS ORDERED: Vancomycin HCl 500 MG in Sodium Chloride 0.9% 100 ML IVPB SCH (18:15)
[2021-06-22] MEDS ORDERED: Vancomycin 1.5 GRAM/300 ML BAG 1.5 GM in Premix Bag 1 BAG IVPB SCH (20:00)
[2021-06-23] MEDS: Albuterol 200 PUFF (6.7GM INHALER) INH SCH ×7 (00:34→22:38)
[2021-06-23 07:19] LABS: ALT (SGPT) 44 U/L (8-55); AST (SGOT) 66 U/L (5-34); Albumin 2.4 g/dL (3.4-4.8); Alkaline Phosphatase 82 U/L (40-110); Anion Gap 23 mmol/L (10-20); BUN (Urea Nitrogen) 115 mg/dL (9.8-20.1); Bilirubin, Total 0.3 mg/dL (0.2-1.2); Calc. Creatinine Clearance 9 mL/min (70-130); Calcium 7.7 mg/dL (7.8-10.44); Carbon Dioxide 22 mmol/L (23-31); Chloride 98 mmol/L (98-107); Glucose 111 mg/dL (83-110); Potassium 5.5 mmol/L (3.5-5.1); Protein, Total 5.4 g/dL (5.8-8.1); Sodium 137 mmol/L (136-145)
[2021-06-23 07:22] LABS: Magnesium 2.7 mg/dL (1.6-2.6)
[2021-06-23 07:25] LABS: Phosphorus 12.4 mg/dL (2.3-4.7)
[2021-06-23 07:38] LABS: Hemoglobin 7.9 g/dL (12.0-16.0); Mean Corpuscular HGB CONC 32.3 g/dL (32.0-36.0); Mean Corpuscular Hemoglobin 23.8 pg (27.0-31.0); Mean Corpuscular Volume 73.6 fL (78.0-98.0); RBC Distribution Width 14.5 % (11.5-14.5); Red Blood Cell (RBC) Count 3.31 mill/uL (4.20-5.40)
[2021-06-23] MEDS: Mometasone 200 MCG/Formoterol 5 MCG 120 PUFF INHALER INH SCH ×2 (07:40→19:34)
[2021-06-23 08:23] LABS: Actual Bicarbonate (HCO3a) 21.9 mEq/L (22-28); Calcium, Ionized (arterial) 0.97 mmol/L (1.12-1.30); Carboxyhemoglobin (COHb) 1.5 gm% (0.0-3.0); Hemoglobin (Hb) 8.3 g/dL (12.0-16.0); O2 Tension (PaO2), arterial 85.7 mmHg (> 70.0); pH, Arterial 7.38 (7.35-7.45)
[2021-06-23 08:25] LABS: Puncture Site LRA
[2021-06-23] MEDS: Lorazepam 2 MG/ML VIAL SLOW IVP PRN (08:39)
[2021-06-23] MEDS: Enoxaparin Sodium 40 MG/0.4 ML SYRINGE SC SCH (08:40)
[2021-06-23] MEDS: Polyethylene Glycol 3350 17 GM Packet PER TUBE SCH (08:40)
[2021-06-23] MEDS: Zinc Sulfate 220 MG CAP PO SCH (08:40)
[2021-06-23] MEDS: Aspirin Chewable 81 MG TAB PO SCH (08:40)
[2021-06-23] MEDS: Ascorbic Acid 500 mg Chewable Tablet PO SCH (08:40)
[2021-06-23] MEDS: Pantoprazole 40 MG GRANULES PACKET PER TUBE SCH ×2 (08:40→20:42)
[2021-06-23 08:41] LABS: Hypersemented Neutrophil SLIGHT; Hypochromia SLIGHT = 6-15 cells (100X) (0-5/hpf); Lymphocytes 2 % (21-51); MDiff Complete? YES; Monocytes 3 % (0-10); Neutrophil 95 % (42-75); Platelet Count 122 thou/uL (130-400); Platelet Morphology Comment Appears Decreased; Schistocytes SLIGHT = 2-5 cells (100X) (0-1/hpf); Target Cells SLIGHT = 2-5 cells (100X) (0-1/hpf); White Blood Cell (WBC) Count 27.3 thou/uL (4.8-10.8)
[2021-06-23] MEDS: Lantus 1000 UNITS/10 ML VIAL SC SCH ×2 (08:41→21:22)
[2021-06-23] MEDS: Sodium Chloride 0.65% Nasal 44 ML BOT EA NARE SCH ×2 (08:41→13:35)
[2021-06-23] MEDS: METHYLPREDNISOLONE SODIUM SUCC IVPB SCH (08:46)
[2021-06-23] MEDS: SODIUM CHLORIDE 0.9% IVPB SCH (08:46)
[2021-06-23] MEDS ORDERED: Heparin 10,000 UNITS/ 10 ML VIAL ONE (09:49)
[2021-06-23] MEDS ORDERED: Lidocaine 1% (PF) 30 ML VIAL ONE (14:46)
[2021-06-23] MEDS: Calcium Acetate 667 MG CAP PO SCH (16:11)
[2021-06-23] MEDS: Cefepime 0.5 GM, Admixture Fee 1 EACH in Sodium Chloride 0.9% 100 ML IVPB SCH (16:47)
[2021-06-23 19:54] LABS: Vancomycin, Random 11.5 ug/mL (See Comment)
[2021-06-23 20:08] LABS: Potassium 3.9 mmol/L (3.5-5.1)
[2021-06-23] MEDS: Colchicine 0.6 MG TAB PO SCH (20:42)
[2021-06-23] MEDS ORDERED: Vancomycin HCl 750 MG in Sodium Chloride 0.9% 250 ML 250 ML IVPB SCH (21:00)
[2021-06-24] MEDS: Sodium Chloride 0.65% Nasal 44 ML BOT EA NARE SCH ×4 (01:22→20:27)
[2021-06-24] MEDS: Albuterol 200 PUFF (6.7GM INHALER) INH SCH ×6 (03:25→22:58)
[2021-06-24 06:25] LABS: Band 6 % (5-11); Hemoglobin 7.5 g/dL (12.0-16.0); Lymphocytes 3 % (21-51); MDiff Complete? YES; Mean Corpuscular HGB CONC 32.9 g/dL (32.0-36.0); Mean Corpuscular Hemoglobin 24.3 pg (27.0-31.0); Mean Corpuscular Volume 73.9 fL (78.0-98.0); Mean Platelet Volume 7.1 fL (7.4-10.4); Metamyelocyte 1 % (0-0); Monocytes 2 % (0-10); Neutrophil 88 % (42-75); Platelet Count 134 thou/uL (130-400); RBC Distribution Width 14.4 % (11.5-14.5); Red Blood Cell (RBC) Count 3.08 mill/uL (4.20-5.40); White Blood Cell (WBC) Count 24.6 thou/uL (4.8-10.8)
[2021-06-24 07:28] LABS: Actual Bicarbonate (HCO3a) 24.3 mEq/L (22-28); O2 Tension (PaO2), arterial 73.1 mmHg (> 70.0); pH, Arterial 7.46 (7.35-7.45)
[2021-06-24 07:29] LABS: Base Excess (BEa) 0.6 mEq/L (-2.0 to +3.0); Calcium, Ionized (arterial) 1.03 mmol/L (1.12-1.30); Hemoglobin (Hb) 8.4 g/dL (12.0-16.0); Potassium - ABG Lab 4.49 mmol/L (3.70-5.30)
[2021-06-24] MEDS: Mometasone 200 MCG/Formoterol 5 MCG 120 PUFF INHALER INH SCH ×2 (07:34→19:44)
[2021-06-24] MEDS: Dextrose 50% Abboject 50 ML SYRINGE SLOW IVP PRN (07:41)
[2021-06-24 07:59] LABS: Puncture Site RRA
[2021-06-24] MEDS: Pantoprazole 40 MG GRANULES PACKET PER TUBE SCH ×2 (09:16→21:03)
[2021-06-24] MEDS: Enoxaparin Sodium 40 MG/0.4 ML SYRINGE SC SCH (09:16)
[2021-06-24] MEDS: Polyethylene Glycol 3350 17 GM Packet PER TUBE SCH (09:16)
[2021-06-24] MEDS: Colchicine 0.6 MG TAB PO SCH ×2 (09:17→21:03)
[2021-06-24] MEDS: Calcium Acetate 667 MG CAP PO SCH ×3 (09:17→16:25)
[2021-06-24] MEDS: Zinc Sulfate 220 MG CAP PO SCH (09:17)
[2021-06-24] MEDS: Aspirin Chewable 81 MG TAB PO SCH (09:17)
[2021-06-24] MEDS: Ascorbic Acid 500 mg Chewable Tablet PO SCH (09:17)
[2021-06-24] MEDS: SODIUM CHLORIDE 0.9% IVPB SCH (09:18)
[2021-06-24] MEDS: METHYLPREDNISOLONE SODIUM SUCC IVPB SCH (09:18)
[2021-06-24] MEDS: Lantus 1000 UNITS/10 ML VIAL SC SCH ×2 (09:20→21:04)
[2021-06-24] MEDS: Lorazepam 2 MG/ML VIAL SLOW IVP PRN ×4 (11:58→19:22)
[2021-06-24 12:08] LABS: ALT (SGPT) 43 U/L (8-55); AST (SGOT) 51 U/L (5-34); Albumin 2.4 g/dL (3.4-4.8); Alkaline Phosphatase 83 U/L (40-110); Anion Gap 16 mmol/L (10-20); BUN (Urea Nitrogen) 66 mg/dL (9.8-20.1); Bilirubin, Total 0.4 mg/dL (0.2-1.2); Calc. Creatinine Clearance 14 mL/min (70-130); Calcium 7.6 mg/dL (7.8-10.44); Carbon Dioxide 26 mmol/L (23-31); Chloride 99 mmol/L (98-107); Globulin 2.8 g/dL (2.4-3.5); Glucose 93 mg/dL (83-110); Magnesium 2.2 mg/dL (1.6-2.6); Phosphorus 6.9 mg/dL (2.3-4.7); Potassium 4.7 mmol/L (3.5-5.1); Protein, Total 5.2 g/dL (5.8-8.1); Sodium 136 mmol/L (136-145)
[2021-06-24] MEDS ORDERED: Senokot S 8.6-50 MG TAB PO SCH (13:30)
[2021-06-24] MEDS: Propofol 1,000 MG/100 ML VIAL IV PRN ×2 (15:26→18:05)
[2021-06-24] MEDS: Amiodarone 450 MG, Admixture Fee 1 EACH in Dextrose 5% in Water 250 ML IVPB SCH ×2 (15:45→21:52)
[2021-06-24] MEDS: Vecuronium 10 MG VIAL IV PRN ×2 (17:15→19:22)
[2021-06-24] MEDS: Cefepime 0.5 GM, Admixture Fee 1 EACH in Sodium Chloride 0.9% 100 ML IVPB SCH (18:04)
[2021-06-24] MEDS ORDERED: Sterile Water 10 ML ONE (19:16)
[2021-06-24] MEDS: Senokot S 8.6-50 MG TAB PO SCH (21:05)
[2021-06-24] MEDS: HumaLOG 300 UNITS/3 ML VIAL SC PRN (21:33)
[2021-06-24] MEDS: Acetaminophen 325 MG TAB PO PRN (21:48)
[2021-06-24 21:55] LABS: Vancomycin, Random 21.3 ug/mL (See Comment)
[2021-06-25] MEDS: HumaLOG 300 UNITS/3 ML VIAL SC PRN ×2 (00:39→06:41)
[2021-06-25] MEDS: Propofol 1,000 MG/100 ML VIAL IV PRN ×3 (00:42→17:43)
[2021-06-25 00:45] LABS: Lactic Acid 3.5 mmol/L (0.5-2.2)
[2021-06-25 00:49] LABS: ALT (SGPT) 44 U/L (8-55); AST (SGOT) 42 U/L (5-34); Albumin 2.2 g/dL (3.4-4.8); Alkaline Phosphatase 88 U/L (40-110); Anion Gap 20 mmol/L (10-20); BUN (Urea Nitrogen) 89 mg/dL (9.8-20.1); Bilirubin, Total 0.4 mg/dL (0.2-1.2); Calc. Creatinine Clearance 12 mL/min (70-130); Calcium 7.2 mg/dL (7.8-10.44); Carbon Dioxide 22 mmol/L (23-31); Chloride 97 mmol/L (98-107); Globulin 2.8 g/dL (2.4-3.5); Glucose 344 mg/dL (83-110); Potassium 4.8 mmol/L (3.5-5.1); Sodium 134 mmol/L (136-145)
[2021-06-25 00:50] LABS: Hemoglobin 8.6 g/dL (12.0-16.0); Mean Corpuscular HGB CONC 32.5 g/dL (32.0-36.0); Mean Corpuscular Hemoglobin 23.9 pg (27.0-31.0); Mean Corpuscular Volume 73.5 fL (78.0-98.0); RBC Distribution Width 14.5 % (11.5-14.5); Red Blood Cell (RBC) Count 3.59 mill/uL (4.20-5.40); White Blood Cell (WBC) Count 25.1 thou/uL (4.8-10.8)
[2021-06-25 01:14] LABS: Band 24 % (5-11); Lymphocytes 4 % (21-51); MDiff Complete? YES; Mean Platelet Volume 8.1 fL (7.4-10.4); Monocytes 5 % (0-10); Neutrophil 67 % (42-75); Platelet Count 123 thou/uL (130-400); Platelet Morphology Comment Appears Decreased
[2021-06-25 02:25] LABS: Bacteria/HPF None Seen HPF (None Seen); Bilirubin Negative (Negative); Blood, Urine 2+ (Negative); Clarity Turbid (Clear); Glucose, Urine (Dipstick) 100 mg/dL (Negative); Ketone, Urine Negative (Negative); Leukocyte Negative Leu/uL (Negative); Nitrite Negative (Negative); Protein, Urine (Dipstick) 100 mg/dL (Neg-Trace); Specific Gravity, Urine 1.014 (1.002-1.036); Squamous Epithelial 0-3 HPF (0-3); Urobilinogen Normal mg/dL (Less than 2)
[2021-06-25] MEDS: Albuterol 200 PUFF (6.7GM INHALER) INH SCH ×5 (02:25→19:02)
[2021-06-25 02:26] LABS: Urine Culture Reflex Yes Yes
[2021-06-25 05:32] LABS: Phosphorus 7.3 mg/dL (2.3-4.7)
[2021-06-25 05:35] LABS: Anion Gap 18 mmol/L (10-20); BUN (Urea Nitrogen) 92 mg/dL (9.8-20.1); Calc. Creatinine Clearance 12 mL/min (70-130); Calcium 7.4 mg/dL (7.8-10.44); Carbon Dioxide 24 mmol/L (23-31); Chloride 98 mmol/L (98-107); Glucose 234 mg/dL (83-110); Potassium 4.5 mmol/L (3.5-5.1); Sodium 135 mmol/L (136-145)
[2021-06-25] MEDS: Vecuronium 10 MG VIAL IV PRN ×5 (05:50→22:08)
[2021-06-25 07:01] LABS: Anisocytosis SLIGHT = 6-15 cells (100X) (0-5/hpf); Band 26 % (5-11); Hemoglobin 7.4 g/dL (12.0-16.0); Lymphocytes 3 % (21-51); MDiff Complete? YES; Mean Corpuscular HGB CONC 32.2 g/dL (32.0-36.0); Mean Corpuscular Hemoglobin 23.7 pg (27.0-31.0); Mean Corpuscular Volume 73.7 fL (78.0-98.0); Mean Platelet Volume 11.3 fL (7.4-10.4); Monocytes 1 % (0-10); Neutrophil 70 % (42-75); Platelet Count 131 thou/uL (130-400); RBC Distribution Width 14.6 % (11.5-14.5); White Blood Cell (WBC) Count 28.3 thou/uL (4.8-10.8)
[2021-06-25] MEDS: Mometasone 200 MCG/Formoterol 5 MCG 120 PUFF INHALER INH SCH ×2 (07:57→19:02)
[2021-06-25] MEDS: Amiodarone 450 MG, Admixture Fee 1 EACH in Dextrose 5% in Water 250 ML IVPB SCH ×2 (08:36→23:39)
[2021-06-25] MEDS: Polyethylene Glycol 3350 17 GM Packet PER TUBE SCH (08:36)
[2021-06-25] MEDS: Enoxaparin Sodium 40 MG/0.4 ML SYRINGE SC SCH (08:36)
[2021-06-25] MEDS: Pantoprazole 40 MG GRANULES PACKET PER TUBE SCH ×2 (08:37→19:32)
[2021-06-25] MEDS: METHYLPREDNISOLONE SODIUM SUCC IVPB SCH (08:37)
[2021-06-25] MEDS: Senokot S 8.6-50 MG TAB PO SCH ×2 (08:37→19:32)
[2021-06-25] MEDS: SODIUM CHLORIDE 0.9% IVPB SCH (08:37)
[2021-06-25] MEDS: Colchicine 0.6 MG TAB PO SCH ×2 (08:37→19:32)
[2021-06-25] MEDS: Zinc Sulfate 220 MG CAP PO SCH (08:37)
[2021-06-25] MEDS: Calcium Acetate 667 MG CAP PO SCH ×3 (08:37→16:14)
[2021-06-25] MEDS: Ascorbic Acid 500 mg Chewable Tablet PO SCH (08:38)
[2021-06-25] MEDS: Aspirin Chewable 81 MG TAB PO SCH (08:38)
[2021-06-25] MEDS: Lantus 1000 UNITS/10 ML VIAL SC SCH ×2 (08:38→19:33)
[2021-06-25] MEDS: Sodium Chloride 0.65% Nasal 44 ML BOT EA NARE SCH ×3 (08:41→19:34)
[2021-06-25] MEDS ORDERED: Heparin 10,000 UNITS/ 10 ML VIAL ONE (09:42)
[2021-06-25] MEDS: Lorazepam 2 MG/ML VIAL SLOW IVP PRN ×4 (10:58→22:08)
[2021-06-25] MEDS ORDERED: Albumin 25% 100 ML ONE (11:09)
[2021-06-25] MEDS ORDERED: Cefepime 1 GM in Sodium Chloride 0.9% 100 ML IVPB SCH (18:00)
[2021-06-25] MEDS ORDERED: Enoxaparin Sodium 80 MG/0.8 ML SYRINGE SC SCH (21:00)
[2021-06-26] MEDS: HumaLOG 300 UNITS/3 ML VIAL SC PRN ×2 (00:12→05:22)
[2021-06-26] MEDS: Albuterol 200 PUFF (6.7GM INHALER) INH SCH ×5 (00:20→15:13)
[2021-06-26] MEDS: Propofol 1,000 MG/100 ML VIAL IV PRN ×3 (01:45→10:37)
[2021-06-26 04:23] LABS: Anion Gap 19 mmol/L (10-20); BUN (Urea Nitrogen) 67 mg/dL (9.8-20.1); Calc. Creatinine Clearance 16 mL/min (70-130); Calcium 7.3 mg/dL (7.8-10.44); Carbon Dioxide 27 mmol/L (23-31); Chloride 94 mmol/L (98-107); Glucose 246 mg/dL (83-110); Potassium 3.9 mmol/L (3.5-5.1); Sodium 136 mmol/L (136-145)
[2021-06-26] MEDS ORDERED: Fentanyl CADD 100 ML ONE (07:34)
[2021-06-26] MEDS: Fentanyl CADD 100 ML IV SCH (07:37)
[2021-06-26] MEDS: Mometasone 200 MCG/Formoterol 5 MCG 120 PUFF INHALER INH SCH (08:02)
[2021-06-26 08:34] LABS: Hemoglobin 8.4 g/dL (12.0-16.0); Mean Corpuscular HGB CONC 31.3 g/dL (32.0-36.0); Mean Corpuscular Hemoglobin 23.5 pg (27.0-31.0); Mean Corpuscular Volume 75.1 fL (78.0-98.0); Mean Platelet Volume 7.7 fL (7.4-10.4); Platelet Count 150 thou/uL (130-400); RBC Distribution Width 14.5 % (11.5-14.5); Red Blood Cell (RBC) Count 3.56 mill/uL (4.20-5.40); White Blood Cell (WBC) Count 22.6 thou/uL (4.8-10.8)
[2021-06-26 08:48] LABS: Band 44 % (5-11); Lymphocytes 2 % (21-51); MDiff Complete? YES; Monocytes 2 % (0-10); Neutrophil 52 % (42-75); Platelet Morphology Comment Appears Adequate; Polychromasia SLIGHT = 2-3 cells (100X) (0-2/hpf); Target Cells SLIGHT = 2-5 cells (100X) (0-1/hpf)
[2021-06-26] MEDS: Calcium Acetate 667 MG CAP PO SCH ×2 (09:12→15:15)
[2021-06-26] MEDS: Ascorbic Acid 500 mg Chewable Tablet PO SCH (09:12)
[2021-06-26] MEDS: Aspirin Chewable 81 MG TAB PO SCH (09:12)
[2021-06-26] MEDS: Acetaminophen 325 MG TAB PO PRN (09:12)
[2021-06-26] MEDS: Lantus 1000 UNITS/10 ML VIAL SC SCH (09:13)
[2021-06-26] MEDS: Zinc Sulfate 220 MG CAP PO SCH (09:13)
[2021-06-26] MEDS: Pantoprazole 40 MG GRANULES PACKET PER TUBE SCH (09:13)
[2021-06-26] MEDS: Sodium Chloride 0.65% Nasal 44 ML BOT EA NARE SCH (09:14)
[2021-06-26] MEDS: Polyethylene Glycol 3350 17 GM Packet PER TUBE SCH (09:14)
[2021-06-26] MEDS: Senokot S 8.6-50 MG TAB PO SCH (09:14)
[2021-06-26] MEDS: Vecuronium 10 MG VIAL IV PRN (09:15)
[2021-06-26] MEDS: Colchicine 0.6 MG TAB PO SCH (09:18)
[2021-06-26] MEDS: METHYLPREDNISOLONE SODIUM SUCC IVPB SCH (09:28)
[2021-06-26] MEDS: SODIUM CHLORIDE 0.9% IVPB SCH (09:28)
[2021-06-26] MEDS ORDERED: Heparin 10,000 UNITS/ 10 ML VIAL ONE (09:31)
[2021-06-26 12:34] VITALS: TEMP 100.9
[2021-06-26] MEDS ORDERED: EPINEPHrine 1 MG/10 ML Abboject SYRINGE ONE (13:30)
[2021-06-26] MEDS ORDERED: Sodium Bicarb 50 MEQ/50 ML Abboject 8.4% SYRINGE ONE (13:38)
[2021-06-26] MEDS ORDERED: Norepinephrine 8 MG/0.9% NS 250 ML ONE (13:54)
[2021-06-26 14:12] VITALS: BMI 32.1
[2021-06-26] MEDS ORDERED: Albumin 25% 100 ML ONE (14:46)
[2021-06-26] MEDS ORDERED: Norepinephrine 8 MG/0.9% NS 250 ML IVPB PRN (15:00)
[2021-06-26] MEDS ORDERED: Albumin 25% 25 GM/100 ML BOT IVPB SCH (15:00)
[2021-06-26] MEDS ORDERED: Sodium Bicarb 50 MEQ/50 ML Abboject 8.4% SYRINGE IVP SCH (15:00)
[2021-06-26 15:11] VITALS: BP 84/41
== END 2021-06-26 17:37 | disposition expired | DRG 207 ==
LOC: ERS 23:24 → ERHOLD 06-12 00:20 → T4-B 06-12 18:14 → CCU 06-14 14:07
PROVIDERS: ADMIT Student in an Organized Health Care Education/Training Program; ATTEND Internal Medicine
PROC: 8E0ZXY6 Isolation (ICD-10-PCS; 2021-06-12)
PROC: 0D9670Z Drainage of Stomach with Drainage Device, Via Natural or Artificial Opening (ICD-10-PCS; 2021-06-12)
PROC: 3E0333Z Introduction of Anti-inflammatory into Peripheral Vein, Percutaneous Approach (ICD-10-PCS; 2021-06-12)
PROC: 5A1955Z Respiratory Ventilation, Greater than 96 Consecutive Hours (ICD-10-PCS; principal; 2021-06-14)
PROC: 0BH17EZ Insertion of Endotracheal Airway into Trachea, Via Natural or Artificial Opening (ICD-10-PCS; 2021-06-14)
PROC: 02HV33Z Insertion of Infusion Device into Superior Vena Cava, Percutaneous Approach (ICD-10-PCS; 2021-06-14)
PROC: B548ZZA Ultrasonography of Superior Vena Cava, Guidance (ICD-10-PCS; 2021-06-14)
PROC: 06HY33Z Insertion of Infusion Device into Lower Vein, Percutaneous Approach (ICD-10-PCS; 2021-06-18)
PROC: 5A1D70Z Performance of Urinary Filtration, Intermittent, Less than 6 Hours Per Day (ICD-10-PCS; 2021-06-18)
PROC: 3E033XZ Introduction of Vasopressor into Peripheral Vein, Percutaneous Approach (ICD-10-PCS; 2021-06-26)
DX: U07.1 COVID-19 (principal); J12.82 Pneumonia due to coronavirus disease 2019; J96.01 Acute respiratory failure with hypoxia; N18.6 End stage renal disease; J15.1 Pneumonia due to Pseudomonas; A41.52 Sepsis due to Pseudomonas; R65.21 Severe sepsis with septic shock; A41.50 Gram-negative sepsis, unspecified; N17.9 Acute kidney failure, unspecified; M62.82 Rhabdomyolysis; I12.0 Hypertensive chronic kidney disease with stage 5 chronic kidney disease or end stage renal disease; I30.8 Other forms of acute pericarditis; Z66 Do not resuscitate; E78.5 Hyperlipidemia, unspecified; M10.9 Gout, unspecified; E11.22 Type 2 diabetes mellitus with diabetic chronic kidney disease; E11.69 Type 2 diabetes mellitus with other specified complication; E88.09 Other disorders of plasma-protein metabolism, not elsewhere classified; E66.9 Obesity, unspecified; D63.1 Anemia in chronic kidney disease; E11.65 Type 2 diabetes mellitus with hyperglycemia; E87.5 Hyperkalemia; K59.00 Constipation, unspecified; Z98.890 Other specified postprocedural states; Z90.710 Acquired absence of both cervix and uterus; Z79.4 Long term (current) use of insulin; Z79.899 Other long term (current) drug therapy; Z78.1 Physical restraint status; Z88.8 Allergy status to other drugs, medicaments and biological substances; Z83.3 Family history of diabetes mellitus; Z82.49 Family history of ischemic heart disease and other diseases of the circulatory system; Z68.32 Body mass index [BMI] 32.0-32.9, adult; E83.39 Other disorders of phosphorus metabolism
CPT/HCPCS: 36415; 36416; 36600; 71045; 74018; 80048; 80053; 80202; 81001; 82550; 82553; 82805; 83605; 83735; 84100; 84484; 85025; 86140; 86704; 86706; 86803; 87040; 87070; 87077; 87086; 87186; 87205; 87340; 90935; 93005; 93010; 93306; 94002; 94003; 94760; 96374; C9113; G0257; J0282; J0692; J1100; J1642; J1644; J1650; J1815; J1940; J1956; J2060; J2270; J2704; J2920; J3010; J3370; J3490; J7050; J7070; P9047; S0028